=== PATIENT | male | born 1965 | race Caucasian/White ===

== ENCOUNTER → 2017-07-01 | Outpatient (CLI) | payer OTHER ==
[~2017-07-01] MED LIST: ASPI81TA25 PO; ATOR-24 PO; CLOP1TAB5 PO; ISOS30TA3 PO
[2017-07-01 17:46] LABS: ALT/SGPT 31 U/L (12-78); BLOOD UREA NITROGEN 18 mg/dl (7-18); BUN/CREATININE RATIO 17.7 (10-20); CALCIUM 8.9 mg/dl (8.5-10.1); CARBON DIOXIDE 27 mmol/L (21-32); CHLORIDE 105 mmol/L (98-107); CHOLESTEROL 148 mg/dl (0-200); GLUCOSE 96 mg/dl (70-99); POTASSIUM 4.3 mmol/L (3.5-5.1); SODIUM 139 mmol/L (136-145)
[2017-07-01 17:56] LABS: ALB/GLOB RATIO 1.2 (0.9-2); ALKALINE PHOSPHATASE 66 U/L (45-117); AST/SGOT 21 U/L (15-37); CHOLESTEROL/HDL RATIO 2.7; HDL CHOLESTEROL 54 mg/dl; LDL CHOLESTEROL CALCULATED 32 mg/dl; THYROID STIMULATING HORMONE 0.959 uIu/ml (0.300-4.500); TRIGLYCERIDES 309 mg/dl (0-150); VERY LOW DENSITY LIPOPROT CALC 62 mg/dl
== END | disposition home or self-care (01) ==
LOC: C.LABPBG 15:52
PROVIDERS: ATTEND Physician Assistant
DX: R42 Dizziness and giddiness (principal); Z00.00 Encounter for general adult medical examination without abnormal findings

== ENCOUNTER → 2018-01-13 | Outpatient (CLI) | payer OTHER ==
--- NOTE | 2018-01-13 16:06 | DIAGNOSTIC IMAGING REPORT ---
CHEST 2 VIEWS ROUTINE CLINICAL HISTORY: R06.02 Shortness of [id number] dyspnea COMPARISON STUDY: No previous studies for comparison. FINDINGS: The bones soft tissues and hemidiaphragms are normal. The cardiomediastinal silhouette is normal. The lungs are clear. The pulmonary vasculature is normal. IMPRESSION: Negative chest. The above report was generated using voice recognition software. It may contain grammatical, syntax or spelling errors. Electronically signed by: Junior Severino M.D. 01/13/2018 4:05 PM Dictated Date/Time: 01/13/2018 4:04 PM
== END | disposition home or self-care (01) ==
LOC: C.RAD1850 15:43
PROVIDERS: ATTEND Physician Assistant
DX: R06.02 Shortness of breath (principal)

== ENCOUNTER 2024-11-09 05:53 | Observation (INO) ==
--- NOTE | 2024-10-16 11:05 | PAT Medication Instructions ---
Medication Instructions Date of Service October 16, 2024 Home Medications Medication Instructions Recorded hydrocodone 5 mg-acetaminophen 325 1 - 2 tab PO Q6H PRN pain #15 tabs 10/05/ mg tablet Medication List: aspirin 81 mg tablet,delayed release (Aspir-) 81 mg PO QAM hydrocodone 5 mg-acetaminophen 325 mg tablet 1 - 2 tab PO Q6H PRN pain gabapentin 300 mg capsule 300 mg PO BID lisinopril 10 mg tablet 10 mg PO QAM rosuvastatin 40 mg tablet 40 mg PO QAM MEDICATION INSTRUCTIONS: ASK your prescriber and surgeon aspirin 81 mg tablet,delayed release (Aspir-) 81 mg PO QAM DO NOT take the morning of surgery lisinopril 10 mg tablet 10 mg PO QAM Take morning of surgery With a small sip of water, OTHERWISE NOTHING TO EAT OR DRINK AFTER MIDNIGHT: rosuvastatin 40 mg tablet 40 mg PO QAM hydrocodone 5 mg-acetaminophen 325 mg tablet 1 - 2 tab PO Q6H PRN pain gabapentin 300 mg capsule 300 mg PO BID Take evening before surgery hydrocodone 5 mg-acetaminophen 325 mg tablet 1 - 2 tab PO Q6H PRN pain gabapentin 300 mg capsule 300 mg PO BID Other Notes If you have any questions please call us at [phone] or [phone] or [phone] or [phone]
--- NOTE | 2024-10-30 09:23 | Anesthesiology Consultation ---
Date of Service October 30, 2024 Assessment & Plan (1) Encounter for pre-operative examination: - Infectious disease screening: Per assessment on 10/30/24- No known recent infectious disease contacts or current infectious disease symptoms. - Cardiology visit (10/11/24): "EKG Today NSR no acute changes.. In terms of preop risk assessment, per Asim criteria, patient was counseled that hr would be placed at a low risk for any perioperative cardiovascular events associated with laminectomy surgery. Patient is on a good medication regimen and no other cardiac testing or interventions would further lower that risk.." Chart Review Chart Review: Acceptable Risk for Surgery and Patient seen in Pre Admission Testing Teaching & Discussion Pre-Anesthesia Teaching/Discussion Notes: Instructed NPO after midnight before surgery,except medications with 15 cc of water. Medication instructions provided according to the PAT guidelines. History Surgery Operation Date: 11/09/24 08:50 Proposed Procedures p L4 Laminectomy - Stu Zimmer MD Height/Weight Height: 5 ft 7 in Weight: 78.6 kg Allergies Allergy/AdvReac Type Severity Reaction Status Date / Time No Known Allergies Allergy Verified 10/16/24 08:32 Medications Home Medications Medication Instructions Recorded Confirmed Last Taken aspirin 81 mg tablet,delayed 81 mg PO QAM 09/05/18 10/16/24 09/30/19 release (Aspir-) hydrocodone 5 mg-acetaminophen 325 1 - 2 tab PO Q6H PRN pain #15 tabs 10/05/24 10/16/24 Unknown mg tablet lisinopril 10 mg tablet 10 mg PO QAM 10/16/24 10/16/24 Unknown rosuvastatin 40 mg tablet 40 mg PO QAM 10/16/24 10/16/24 Unknown gabapentin 300 mg capsule 300 mg PO TID 10/19/24 Unknown methylprednisolone 4 mg tablet 4 mg PO .COMPLEX 18 days #63 tabs 10/19/24 Unknown (Medrol) Past Medical History Medical History Coronary artery disease GILBERT x2 to LAD 10/2013 Repeat cath 01/2014- patent LAD stents, intermediate lesion in pLAD (not hemodynamically sufficient by FFR, nonobstructive disease elsewhere - medical management Disc degeneration, lumbar Dyslipidemia Hypertension Lumbar disc herniation Lumbar radiculopathy Lumbar spondylosis Myocardial Infarction 2013 Follows with [facility] cardio/Dr. Cade Osteoarthritis Exercise / Class Metabolic Activity II 4-5 Yardwork/Stairs/Walk up hill (one FS: No CP, no SOB) Past Family History Family History Sister Family hx colonic polyps Father Cardiac disorder Gall bladder disease Hypertension Myocardial infarction 39 Brother Cardiac disorder Hypertension Myocardial infarction 45 Mother Coronary heart disease Myocardial infarction Denies family history of Ovarian cancer Prostate cancer Diabetes Breast cancer Lung cancer Past Surgical History Surgical History H/O arthroscopy of shoulder (2018) Left shoulder History of cardiac cath stents History of colonoscopy History of heart artery stent stents History of herniorrhaphy History of tooth extraction Hx of vasectomy Past Anesthesia History No Hx of Anesthesia Complications and No Family Hx of Anesthesia Complications History of PONV No Hx of PONV and No Hx of Motion Sickness Social History Smoking Status: Never smoker tobacco type: smokeless tobacco Do You Dip or Chew Tobacco: Yes (Daily- Advised none DOS) Hx Alcohol Use: Yes Alcohol type: beer alcohol intake frequency: holidays/special occasions only Hx Substance Use: No substance use type: does not use Review of Systems Patient denies chest pain, shortness of breath, dyspnea on exertion, fever, chills, cough, wheezing, palpitations. Physical Exam Vital Signs BP 122/84 P 61 TEMP 98.2 SP02 96%RA RESP 16 Physical Full cervical extension range of motion. Full TMJ range of motion. TMD 3 finger breaths Mallampati Score I Dentition: upper partial Lungs: clear throughout to auscultation Cardiac: regular rate and rhythm, no murmurs noted Spine: normal Carotid arteries: negative bruit Extremities: no LE edema Lab Results Anesthesia Preop Results Results Anesthesia Widget: WBC 12.93 K/ul (4.8-10.8) H 10/30/24 Hgb 14.9 g/dl (14.0-18.0) 10/30/24 Hct 45.5 % (42.0-52.0) 10/30/24 Plt 317 K/uL (130-400) 10/30/24 PT 10.3 Seconds (9.0-12.0) 10/30/24 PTT 26 Seconds (21-31) 10/30/24 INR 0.9 (0.9-1.1) 10/30/24 HA1c 5.6 % (4.5-5.6) 10/30/24 Testing Laboratory Results 10/09/24 SODIUM 136 POTASSIUM 5.1 CHLORIDE 101 CO2 22 BUN 14 CREATININE 1.2 GLUCOSE 105 Elevated WBC- Surgeon's office made aware. Electrocardiogram Date: 10/11/24 Findings: + NSR @ (73) Stress Test Date: 10/20/21 Negative stress echo/ECG for ischemia at 89% MPHR. Excellent exercise tolerance. 14.2 METS. Rest echo: EF 60-65%. No regional wall motion abnormalities. No LVH. No significant diastolic dysfunction. No significant valvular abnormalities.
[2024-11-09] MEDS ORDERED: ONDANSETRON INJ 2 MG/ML 2 ML VIAL ONE (06:41)
[2024-11-09] MEDS ORDERED: MIDAZOLAM HCL 1 MG/ML 2ML VIAL ONE (06:41)
[2024-11-09] MEDS ORDERED: LIDOCAINE 2% 2 ML VIAL/AMP(20MG/ML) INFIL ONE (06:41)
[2024-11-09] MEDS ORDERED: fentaNYL citrate PF 100 MCG/2 ML VIAL ONE (06:41)
[2024-11-09] MEDS ORDERED: DEXAMETHASONE SOD INJ 4 MG/ML VIAL ONE (06:41)
[2024-11-09] MEDS ORDERED: PROPOFOL IV EMULSION 10 MG/ML 20 ML VIAL IV ONE (06:41)
[2024-11-09] MEDS ORDERED: ROCURONIUM BROMIDE 10 MG/ML 5 ML VIAL IV ONE (06:42)
[2024-11-09] MEDS: LR 60ML/HR IV SCH (06:44)
[2024-11-09] MEDS: LR 15ML/HR IV SCH (06:44)
--- NOTE | 2024-11-09 07:12 | History & Physical Report ---
Date of Service November 09, 2024 Assessment & Plan (1) Lumbar spondylosis: (2) Lumbar radiculopathy: (3) Cyst of lumbar facet joint: (4) Disc degeneration, lumbar: Plan I discussed treatment options with the patient today. At this time he has had almost 3 months of symptoms without significant improvement despite trialing corticosteroids, gabapentin and narcotic pain medication. He has been doing home exercises, he has had multiple trips to the emergency department due to the severity of his pain. He does have documented weakness of ankle dorsiflexion on the right. I discussed the possibility of observation, epidural injection or surgery in the form of an L4-5 decompression via L4 laminectomy. Given the severity of pain and duration of symptoms patient would like to proceed with surgical intervention. He reports he has a cardiology appointment next week for preoperative evaluation. We discussed surgical intervention at length, and the patient was informed that risks include but are not limited to: bleeding, infection, blood clots to extremities or lungs, no relief or incomplete relief of symptoms, dural tear, nerve injury, paralysis, weakness, pain, prolonged recovery, need for physical therapy or rehabilitation services, loss of bowel/bladder control, recurrent stenosis or disc herniation, need for more surgery, and in very rare instances even . We also discussed the fact that this surgery is better for relief of the nerve pain in the lower extremities than back pain. The patient voiced understanding of the risks and benefits of surgery and elected to proceed. History of Present Illness Chief Complaint: Right Leg Pain Primary Care Provider: Judit Upton MD Patient is a pleasant 59-year-old gentleman who comes in today with several months of right lower extremity radicular pain. Reports last year he had severe episode of pain radiating into the right gluteal and lateral thigh region. This resolved however came back in July of this year worsening and now radiating down the posterior lateral aspect of his leg following an L5 dermatomal pattern. He was started on an oral steroid pack which did provide temporary relief. Shortly after stopping the oral steroid pack he reported return of pain down his right lower extremity. He was evaluated by his primary care physician. He reports doing greater than 6 weeks of home exercise program which includes lumbar stretches without significant improvement. Pain has worsened and recently he presented to the [facility] emergency department for evaluation. He subsequently had an MRI which demonstrated moderate to severe central canal stenosis and severe bilateral L4-5 lateral recess stenosis. He has been taking gabapentin hydrocodone with minimal relief. He does have some weakness in his right foot with ankle dorsiflexion which she did not notice until he was evaluated in the emergency department. Allergies Allergy/AdvReac Type Severity Reaction Status Date / Time No Known Allergies Allergy Verified 11/09/24 06:21 Home Medications Medication Instructions Recorded Confirmed Type aspirin 81 mg tablet,delayed 81 mg PO QAM 09/05/18 11/09/24 History release (Aspir-) hydrocodone 5 mg-acetaminophen 325 1 - 2 tab PO Q6H PRN pain #15 tabs 10/05/24 11/09/24 Rx mg tablet lisinopril 10 mg tablet 10 mg PO QAM 10/16/24 11/09/24 History rosuvastatin 40 mg tablet 40 mg PO QAM 10/16/24 11/09/24 History gabapentin 300 mg capsule 300 mg PO TID 10/19/24 11/09/24 History methylprednisolone 4 mg tablet 4 mg PO .COMPLEX 18 days #63 tabs 10/19/24 11/09/24 Rx (Medrol) Past Med/Surg History Problem List Cyst of lumbar facet joint Disc degeneration, lumbar Lumbar radiculopathy Lumbar spondylosis Encounter for pre-operative examination Medical History Coronary artery disease GILBERT x2 to LAD 10/2013 Repeat cath 01/2014- patent LAD stents, intermediate lesion in pLAD (not hemodynamically sufficient by FFR, nonobstructive disease elsewhere - medical management Disc degeneration, lumbar Dyslipidemia Hypertension Lumbar disc herniation Lumbar radiculopathy Lumbar spondylosis Myocardial Infarction 2013 Follows with [facility] cardio/Dr. Cade Osteoarthritis Surgical History H/O arthroscopy of shoulder (2018) Left shoulder History of cardiac cath 2013- 2 stents History of colonoscopy History of heart artery stent 2013- 2 stents History of herniorrhaphy History of tooth extraction Hx of vasectomy Family History Sister Family hx colonic polyps Father Cardiac disorder Gall bladder disease Hypertension Myocardial infarction 39 Brother Cardiac disorder Hypertension Myocardial infarction 45 Mother Coronary heart disease Myocardial infarction Denies family history of Ovarian cancer Prostate cancer Diabetes Breast cancer Lung cancer Social History Smoking Status: Never smoker Tobacco Type: Smokeless Tobacco (Dip or Chew) Second Hand Exposure: Yes (hx); Do You Dip or Chew Tobacco: Yes (Daily- Advised none DOS); Tobacco Cessation Education Requested by Patient: No Hx Alcohol Use: Yes Alcohol type: beer Hx Substance Use: No Preferred Language: Hungarian Communication Ability: Effective Visual Impairment: No Limitations Hearing Ability: Normal Dye Tub Tender Required: No Beliefs That Will Affect Care: None Current Living Situation: Spouse current occupational status: employed current occupation: construction Other Information That Helps Us Care for You: No Feels Safe at Home: Yes Safety Concerns: Feels Safe At This Time Childhood Exposure to Second-Hand Smoke: Yes Diet Comment: regular caffeine: No Dental Care, Regularly: No Physical Activity Frequency: Daily Physical Activity Frequency Comment: walking Seatbelt Use: sometimes Sunscreen Use: No Assistive Devices: Denture - Upper Assistive Devices Comment: upper partial denture Review of Systems All systems reviewed & are unremarkable except as noted in HPI & below. Physical Exam Constitutional: Well developed, appears stated age Psych: patient is coherent and answers questions appropriately, normal affect Eye: Normal gaze, no redness to sclera, pupils round and equal Pulm: Normal respiratory effort, no wheezing Cardiovascular: no significant peripheral edema, palpable DP/PT pulses Skin shows no rashes, lesions No midline or paraspinal tenderness with palpation over the lumbar spine, no stepoffs Motor strength is 5/5 in bilateral hip flexors, quadriceps, tibialis anterior, extensor hallucis longus, and gastroc/soleus complex with the exception of 4 out of 5 strength in right tibialis anterior and EHL Sensation intact to light touch in the L2-S1 dermatomes bilaterally with the exception of paresthesias right L5 dermatome Results & Data Results & Data Laboratory Results . Diagnostic Findings Weightbearing AP lateral and oblique views of the lumbar spine were available for review today and interpreted personally. There is significant posterior facet arthropathy at L4-5 and L5-S1. Maintained disc space height throughout the lumbar spine. There is no evidence of spondylolisthesis. MRI of the lumbar spine was available for review today and interpreted personally. Moderate disc degeneration at the L3-4 and L4-5 levels. L4-5 demonstrates a significant disc bulge, there is also posterior facet arthropathy with osteophyte formation. The anterior disc bulging as well as posterior facet arthropathy lead to circumferential stenosis and severe lateral recess stenosis with compression of bilateral traversing nerve roots PG Care Time/CCT Total # of Minutes Spent Total Time Spent with Patient: Total time spent is greater than 50% in coordination of care (as documented) at patient's floor/unit and/or counseling patient: Coding Level of Care Code Established Pt None Patient Type Established History Problem Focused Exam Problem Focused Diagnoses Lumbar spondylosis M47.816 Lumbar radiculopathy M54.16 Cyst of lumbar facet joint M71.38 Degeneration of intervertebral disc of lumbar region with discogenic back pain and lower extremity pain M51.362 Disc-related pain type: discogenic back pain and lower extremity pain (4) Disc degeneration, lumbar Disc-related pain type: discogenic back pain and lower extremity pain Qualified Code(s): M51.362 - Other intervertebral disc degeneration, lumbar region with discogenic back pain and lower extremity pain
[2024-11-09] MEDS: ceFAZolin 2000MG 2,000 MG/15 ML SYR IV SCH ×2 (07:45→15:57)
[2024-11-09] MEDS ORDERED: PHENYLEPHRINE HCL 10 MG/ML VIAL ONE (07:52)
[2024-11-09] MEDS ORDERED: SUGAMMADEX SODIUM 200 MG/2 ML VIAL IV ONE (07:55)
[2024-11-09] MEDS ORDERED: PHENYLEPHRINE 100MCG/ML 5ML SYR ONE (07:55)
[2024-11-09] MEDS: FLOSEAL HEMOSTATIC MATRIX 10ML TOP ONE (08:46)
[2024-11-09] MEDS: BUPIVACAINE 0.5 % 5 MG/1 ML MPF 30ML VIAL ONE (08:46)
[2024-11-09] MEDS: GELATIN SPONGE SZ 100 ONE (08:46)
[2024-11-09] MEDS: VANCOMYCIN HCL 1000MG/20ML VIAL ONE (08:52)
--- NOTE | 2024-11-09 09:22 | Operative Report ---
PG Post Operative Report Pre & Post Diagnosis Operation Date: 11/09/24 07:30 Pre-Op Diagnosis: (1) Lumbar spondylosis (2) Lumbar radiculopathy (3) Cyst of lumbar facet joint (4) Lumbar Stenosis without claudication Post-Op Diagnosis: (1) Lumbar spondylosis (2) Lumbar radiculopathy (3) Cyst of lumbar facet joint (4) Lumbar Stenosis without claudication I identified the patient and participated in the time-out.: Yes Procedure L4 Laminectomy for excision of extradural lesion, facet cyst ([id number]) Surgeon Stu Zimmer MD Acetylene Operator Spenser ARREDONDO Estimated Blood Loss 20 Findings Consistent with Post-Op Diagnosis Facet cyst originating from right L4-5 facet joint adherent to dura Specimens None Drains MALCOM Drain Anesthesia Type General Complications none Disposition Disposition: Recovery Room Indications Clinic setting reviewed. Failed considerable conservative management and had symptoms for greater than 1 year. Further treatment options to continue observation, epidural injection or surgical intervention. We discussed risks and benefit of L4 laminectomy with excision of facet cyst. Patient elected to proceed with surgery. Description of Procedure Patient was brought to the operating room and general views. Placed in the prone position on table with Neal frame. Preoperative fluoroscopy was used to josselyn incision, he was prepped and draped in usual sterile fashion. Verbal timeout formed identifying the patient by name, date of and verifying the correct procedure. All were in agreement and elected surgery. Skin was incised with 10 blade scalpel, Bovie electrocautery was used to dissect down to the lumbodorsal lumbodorsal fascia was split midline over the L4 spinous recess. I carried out subperiosteal dissection of the left to expose the L4 lamina and superior L5 lamina. Micro nerve hook was placed in the interlaminar space at L4-5, fluoroscopy used to verify the correct. I then used a high-speed bur to decorticate the L4 lamina, spinous process was removed with a Leksell rongeur. Ligamentum flavum was exposed at L4-5. I then used a 4 Kerrison to remove the remaining lamina bone. Ligamentum flavum was split midline with a nerve hook and removed completely between L4 and L5 with 4 Kerrison. There was a large facet cyst arising from the right L4-5 joint tightly adherent to the dura. This was dissected off of the dura with the use of nerve hook and Mason elevator and removed with 4 Kerrison. I found there was facet hypertrophy at L4-5 bilaterally contributing to lateral recess stenosis. Facet joints were undercut bilaterally with 4 Kerrison ensuring to leave greater than 50% bilaterally to avoid instability. Castrejon ball probe was then passed through the L4-5 lateral recess bilaterally, easily able to pass the probe out into the L4-5 foramen by the. This completed decompression and excision of facet cyst. The wound was thoroughly irrigated. Drain was placed subfascially exiting through the skin. The wound was then closed in layers with Vicryl fascia, skin closed Vicryl and mario alberto. Sterile dressing was applied, drain attached to accordion suction. Patient was awakened from anesthesia and taken to PACU in stable condition. I attest to the content of the Intraoperative Record and any orders documented therein. Any exceptions are noted below.
--- NOTE | 2024-11-09 09:37 | Anesthesiology Progress Note ---
Date of Service November 09, 2024 Anesthesia Post Procedure Vital Signs Vital Signs: Temp Pulse Pulse Resp BP Pulse Ox O2 Del Method 11/09/24 09:30 47 L 10 L 138/90 99 Room Air 11/09/24 09:20 44 L 9 L 122/87 100 Room Air 11/09/24 09:14 43 L 8 L 139/93 100 Room Air 11/09/24 06:25 37 C 50 L 20 133/85 97 Room Air Transfer of Care Handoff Completed per policy Notes Mental Status: alert / awake / arousable Patient Amnestic to Procedure: Yes Nausea / Vomiting: adequately controlled Pain: adequately controlled Airway Patency, RR, SpO2: stable & adequate BP & HR: stable & adequate Hydration State: stable & adequate Anesthetic Complications: no major complications apparent and Pt Satisfied with anesthetic care
[2024-11-09] MEDS ORDERED: ONDANSETRON INJ 2 MG/ML 2 ML VIAL IV PRN ×2 (09:41→10:51)
[2024-11-09] MEDS ORDERED: ePHEDrine sulfate 50 MG/ML AMP IV PRN (09:41)
[2024-11-09] MEDS ORDERED: ATROPINE SULFATE 0.1 MG/ML 10ML SYR IV PRN (09:41)
[2024-11-09] MEDS: fentaNYL citrate PF 100 MCG/2 ML VIAL IV PRN (09:45)
[2024-11-09] MEDS: fentaNYL citrate PF 100 MCG/2 ML VIAL ONE (09:46)
--- NOTE | 2024-11-09 10:26 | Fluoroscopy Report ---
FL spine 1V any level CLINICAL HISTORY: L4 LAMINECTOMY TECHNIQUE: 2 views were obtained with the C-arm in the OR with the above procedure. Total fluoroscopy time was 11.4 seconds. Radiation dose was 2.5 mGy. Comparison: Comparison is made to CT lumbar spine 06/07/2020 FINDINGS/IMPRESSION: Intraoperative images were obtained of L4 laminectomy. Please correlate with intraoperative fluoroscopy and operative report. ACT 112: Negative or not required by law. Electronically signed by: Darryl Jean Baptiste M.D. 11/09/2024 10:25 AM
[2024-11-09] MEDS ORDERED: ONDANSETRON 4 MG OD TAB PO PRN (10:51)
[2024-11-09] MEDS ORDERED: MAGNESIUM HYDROXIDE SUSP 30 ML UDC PO PRN (10:51)
[2024-11-09] MEDS ORDERED: diphenhydrAMINE Capsule 25 MG CAP PO PRN (10:51)
[2024-11-09] MEDS ORDERED: bisacodyL 10 MG SUPP PR PRN (10:51)
[2024-11-09] MEDS ORDERED: hydrOXYzine HCl 25 MG TAB PO PRN (10:51)
[2024-11-09] MEDS ORDERED: LORazepam 0.5 MG TAB PO PRN (10:51)
[2024-11-09] MEDS ORDERED: LORazepam 2 MG/1 ML VIAL IV PRN (10:51)
[2024-11-09] MEDS ORDERED: ALUMINUM/MAGNESIUM SUSP 30 ML UDC PO PRN (10:51)
[2024-11-09] MEDS ORDERED: NALOXONE HCL 0.4 MG/1 ML VIAL/CARP IV PRN (10:51)
[2024-11-09] MEDS ORDERED: ACETAMINOPHEN 500 MG TAB PO PRN (10:51)
[2024-11-09] MEDS ORDERED: SOD PHOSPHATE/SOD BIPHOSPHATE ENEMA 132 ML BTL PR PRN (10:51)
[2024-11-09] MEDS ORDERED: METOCLOPRAMIDE HCL INJ 5 MG/ML 2 ML VIAL IV PRN (10:51)
[2024-11-09] MEDS ORDERED: DO NOT ADMINISTER PNEUMOCOCCAL VACCINE PRN (10:51)
[2024-11-09] MEDS ORDERED: PROMETHAZINE 12.5 MG/50.5 ML BAG IV PRN (10:51)
[2024-11-09] MEDS ORDERED: FAMOTIDINE 20 MG TAB PO PRN (10:51)
[2024-11-09] MEDS ORDERED: DO NOT ADMINISTER FLU VACCINE PRN (10:51)
[2024-11-09] MEDS: HYDROmorphone INJ 1 MG/ML SYRINGE IV PRN (11:18)
[2024-11-09] MEDS: ASPIRIN 81 MG ECTAB PO SCH (11:25)
[2024-11-09] MEDS: ROSUVASTATIN CALCIUM 20 MG TAB PO SCH (11:25)
[2024-11-09] MEDS: GABAPENTIN 300 MG CAP PO SCH (11:25)
--- NOTE | 2024-11-09 11:27 | Hospitalist Consultation ---
Date of Consultation November 09, 2024 Assessment & Plan (1) S/P laminectomy: (2) Cyst of lumbar facet joint: (3) Disc degeneration, lumbar: (4) Lumbar radiculopathy: (5) Lumbar spondylosis: (6) Hypertension: (7) Dyslipidemia: (8) Coronary artery disease: Plan S/p L4 laminectomy Lumbar Radiculopathy - POD 0 - Pain management, bowel regimen and DVT ppx per the primary team - PT/OT consults, pt awaiting restrictions/rec from surgeon - Follow am CBC to monitor for acute blood loss, Hgb of 14.9 on 10/30 on chart review CAD s/p 2 GILBERT in 2013 HTN HLD - Continue home meds, did not take lisinopril as directed this morning Tobacco Dependence - Chews 1 can snuff daily, had a chew in mouth during time of eval and pt was receptive to education and removed it. We discussed wound healing s/p laminectomy and to avoid nicotine at least for 48 hrs. Also discussed reduction over the next few weeks. Educated on amount of nicotine he gets with the snuff ( 1 can equivalent to 3 packs cigarrettes). present at bedside and is also supportive. Lines: PIV x 1, MALCOM drain FEN/GI: Advance as tolerated Code: Full Thank you for involving us in the care of Mr. Molina. Please do not hesitate to call with questions or concerns. At this time medicine service will follow along. A total of 35 minutes were spent with greater than 50% of that time face to face with the patient, personally reviewing all current laboratories, imaging studies, past medication reconciliation, outpatient chart review, and discussion with specialists to collaborate care for the patient with attending. Please see attending documentation for corrections and/or additions. Supervising Physician Co-Signing Physician Notes Attending Addendum: Case reviewed with the advanced practitioner. I have personally performed a history and physical examination on the patient. I have reviewed the advanced practitioner's documentation on the date of service referenced in note, and I agree with, and take responsibility for the plan of care. please refer to her notes for full details patient seen and examined, records reviewed by myself as well Davion Wilson MD History of Present Illness Reason for Consultation: Medical management, hx CAD, SC, HTN Attending Physician: Stu Zimmer MD History of Present Illness This is a 59 yo F with PMHx of CAD with GILBERT x 2 to LAD in 2013, HTN, HLD, lumbar disc herniation, radiculopathy and spondylosis and osteoarthritis who underwent elective L4 laminectomy by Dr. Zimmer today 11/09/2024. Medicine has been consulted for history of heart disease and medical management. Patient is doing very well status post surgery, has no acute complaints, no numbness, tingling. His is present with him at bedside. Upon evaluation there is noted that patient has a large chew in his lower lip. Discussion was had regarding nicotine status post laminectomy and he was receptive to spitting out his chew. We discussed not giving nicotine patch post 24 hours after spinal surgery for improved healing. Also discussed further reduction over the next 4 weeks. Pt tolerated oral intake with drinks, he is asking for a diet and is hungry. Last BM was recent. No other acute complaints. Allergies Allergy/AdvReac Type Severity Reaction Status Date / Time No Known Allergies Allergy Verified 11/09/24 06:21 Home Medications Medication Instructions Recorded Confirmed Type aspirin 81 mg tablet,delayed 81 mg PO QAM 09/05/18 11/09/24 History release (Aspir-) hydrocodone 5 mg-acetaminophen 325 1 - 2 tab PO Q6H PRN pain #15 tabs 10/05/24 11/09/24 Rx mg tablet lisinopril 10 mg tablet 10 mg PO QAM 10/16/24 11/09/24 History rosuvastatin 40 mg tablet 40 mg PO QAM 10/16/24 11/09/24 History gabapentin 300 mg capsule 300 mg PO TID 10/19/24 11/09/24 History methylprednisolone 4 mg tablet 4 mg PO .COMPLEX 18 days #63 tabs 10/19/24 11/09/24 Rx (Medrol) Patient History Medical History Coronary artery disease GILBERT x2 to LAD 10/2013 Repeat cath 01/2014- patent LAD stents, intermediate lesion in pLAD (not hemodynamically sufficient by FFR, nonobstructive disease elsewhere - medical management Disc degeneration, lumbar Dyslipidemia Hypertension Lumbar disc herniation Lumbar radiculopathy Lumbar spondylosis Myocardial Infarction 2013 Follows with [facility] cardio/Dr. Cade Osteoarthritis Surgical History H/O arthroscopy of shoulder (2018) Left shoulder History of cardiac cath 2013- stents History of colonoscopy History of heart artery stent 2013- stents History of herniorrhaphy History of tooth extraction Hx of vasectomy Family History Sister Family hx colonic polyps Father Cardiac disorder Gall bladder disease Hypertension Myocardial infarction 39 Brother Cardiac disorder Hypertension Myocardial infarction 45 Mother Coronary heart disease Myocardial infarction Denies family history of Ovarian cancer Prostate cancer Diabetes Breast cancer Lung cancer Social History Smoking Status: Never smoker Tobacco Type: Smokeless Tobacco (Dip or Chew) Second Hand Exposure: No; Do You Dip or Chew Tobacco: No; Tobacco Cessation Education Requested by Patient: No Hx Alcohol Use: Yes Alcohol type: beer Hx Substance Use: No Preferred Language: Dutch Communication Ability: Effective Visual Impairment: No Limitations Hearing Ability: Normal Facilities Custodian Required: No Beliefs That Will Affect Care: None Current Living Situation: Spouse current occupational status: employed current occupation: construction Other Information That Helps Us Care for You: No Feels Safe at Home: No Is there a partner from a previous relationship who is making you feel unsafe now?: No Any Concerns about Your Family Situation: No Would You Like to Speak to Someone About Your Situation: No Safety Concerns: Feels Safe At This Time Childhood Exposure to Second-Hand Smoke: Yes Diet Comment: regular caffeine: No Dental Care, Regularly: No Physical Activity Frequency: Daily Physical Activity Frequency Comment: walking Seatbelt Use: sometimes Sunscreen Use: No Assistive Devices: None Assistive Devices Comment: upper partial denture Review of Systems Review of Systems: Constitutional: No fever, sweats or chills Eyes: No diplopia, no worsening or blurred vision ENT: normal hearing, no trouble swallowing Respiratory: No cough, sputum, dyspnea at rest or on exertion Cardiovascular: No chest pain, tightness or palpitations Abdomen: No pain, nausea, vomiting, diarrhea or constipation Musculoskeletal: No joint pain, calf pain, swelling Neurologic: No weakness, numbness/tingling, or balance problems Psychiatric: No anxiety or depression Skin: No rash or itch Physical Exam Physical Exam: General: awake, alert, no apparent distress, white male, BMI 26 Head: Normocephalic, atraumatic ENT: PERRL, EOMI, no pharyngeal exudate, + poor dentition, + nicotine chewing tobacco (see HPI), mucous membranes moist Chest: Clear to auscultation, on room air, no adventitious breath sounds Cardiac: Regular rate and rhythm, no murmur, no JVD, normal peripheral pulses, good capillary refill Abdominal: NABS x 4 quadrants, soft, nondistended, nontender to palpation, no rebound or guarding Back: MALCOM drain with serosanguineous fluid, dressing C/D/I, patient is able to sit up in bed. Extremities: Normal inspection, no peripheral edema or erythema, calfs nontender to palpation Psych: Normal mood and affect Neuro: AAO x 3, strength intact bilaterally and rated 5/5, no motor deficits, speech is clear, no peripheral sensory deficits Results & Data Results & Data Vital Signs (Past 12 Hours) Vital Signs Temp Pulse Pulse Resp BP Pulse Ox O2 Del Method 11/09/24 11:00 36.6 C 60 20 126/76 96 Room Air 11/09/24 10:30 36.8 C 59 L 20 125/80 98 Room Air 11/09/24 10:30 36.5 C 53 L 20 125/80 96 Room Air 11/09/24 10:10 45 L 10 L 118/75 96 Room Air 11/09/24 10:00 36.4 C L 52 L 12 119/83 96 Room Air 11/09/24 09:50 48 L 12 120/89 96 Room Air 11/09/24 09:40 51 L 12 121/88 99 Room Air 11/09/24 09:30 47 L 10 L 138/90 99 Room Air 11/09/24 09:20 44 L 9 L 122/87 100 Room Air 11/09/24 09:14 43 L 8 L 139/93 100 Room Air 11/09/24 06:25 37 C 50 L 20 133/85 97 Room Air (3) Disc degeneration, lumbar Disc-related pain type: discogenic back pain and lower extremity pain Qualified Code(s): M51.362 - Other intervertebral disc degeneration, lumbar region with discogenic back pain and lower extremity pain
[2024-11-09] MEDS: oxyCODONE/ACETAMINOPHEN 5mg/325mg TAB PO PRN (16:01)
[2024-11-09] MEDS: HYDROmorphone INJ 0.5 MG/0.5 ML SYR IV PRN (19:48)
[2024-11-09] MEDS: DOCUSATE SODIUM/SENNA 50/8.6MG TAB PO SCH (20:31)
[2024-11-10] MEDS: POLYETHYLENE (MIRALAX) 17 GM PACK PO SCH (05:47)
[2024-11-10 08:05] VITALS: BP 126/81; PULSE 71; RESP 18; TEMP 97.7; O2SAT 93
--- NOTE | 2024-11-10 08:49 | Orthopedic Progress Note ---
Date of Service November 10, 2024 Assessment & Plan (1) S/P lumbar laminectomy: dc drain pain control scd and ambulate dc home Subjective s/p lumbar decompression, no complaints, pre op pain is gone Review of Systems All systems reviewed & are unremarkable except as noted in HPI & below. Physical Exam 5/5 L2-S1 myotome SILT L2-S1 dermatomes drain 20cc Results & Data Results & Data Laboratory Results . Diagnostic Findings . PG Care Time/CCT Total # of Minutes Spent Total Time Spent with Patient: Total time spent is greater than 50% in coordination of care (as documented) at patient's floor/unit and/or counseling patient: Coding Level of Care Code 15993 Post Operative Follow-Up Diagnoses S/P lumbar laminectomy Z98.890
--- NOTE | 2024-11-10 08:53 | Hospitalist Progress Note ---
<Statement entered by Miguel Pruett DO - 11/10/24 12:36> I have seen and examined the patient and have discussed the case with the provider above. I have reviewed the advanced practitioner's documentation, and I agree with, and take responsibility for that plan of care. Patient up and ambulatory, pain is well-controlled. is at bedside. Very eager to be discharged. Patient states anticipating discharge from his surgeon. Recommend continuing his previous outpatient medications Discharge plan as per attending Date of Service November 10, 2024 Assessment & Plan (1) S/P laminectomy: (2) Cyst of lumbar facet joint: (3) Disc degeneration, lumbar: (4) Lumbar radiculopathy: (5) Lumbar spondylosis: (6) Hypertension: (7) Dyslipidemia: (8) Coronary artery disease: Plan S/p L4 laminectomy Lumbar Radiculopathy - POD 1 - Pain management, bowel regimen and DVT ppx per the primary team - PT/OT consults, pt awaiting restrictions/rec from surgeon Acute blood loss anemia Hgb 13.3 on POD#1, from pre-op hgb of 14.9 As expected post-operatively No indication for transfusion Asymptotic CAD s/p 2 GILBERT in 2013 HTN HLD - Continue home meds Tobacco Dependence - Chews 1 can snuff daily, had a chew in mouth during time of eval and pt was receptive to education and removed it. We discussed wound healing s/p laminectomy and to avoid nicotine at least for 48 hrs. Also discussed reduction over the next few weeks. Educated on amount of nicotine he gets with the snuff (1 can equivalent to 3 packs cigarettes). present at bedside and is also supportive. Lines: PIV x 1, MALCOM drain FEN/GI: Advance as tolerated Code: Full Thank you for involving us in the care of Mr. Molina. Please do not hesitate to call with questions or concerns. At this time medicine service will follow along. A total of 35 minutes were spent with greater than 50% of that time face to face with the patient, personally reviewing all current laboratories, imaging studies, past medication reconciliation, outpatient chart review, and discussion with specialists to collaborate care for the patient with attending. Please see attending documentation for corrections and/or additions. Admission and Anticipated Discharge Date Admission Date: November 09, 2024 Subjective Seen and examined in 387. Patient dressed and ready for discharge. Feeling well on postop day 1, standing in the room. Denies any surgical site pain or pain/paresthesias in bilateral lower extremities. Tolerating diet without issue. No chest pain or shortness of breath. No nausea or vomiting. Passing flatus and had a small bowel movement. Ready to go home. Review of Systems Review of Systems: At least ten systems reviewed and negative except as noted in the HPI. Physical Exam Physical Exam: Gen: WD/WN, NAD, standing near side of bed, A&Ox3 HEENT: Normocephalic, atraumatic Lung: Clear to Auscultation bilaterally, no wheezes/rales/rhonchi Heart: Regular rate, regular rhythm, no murmurs, rubs, or gallops Abdomen: Soft, NT, ND +BS x 4 Extremities: Spinal dressing c/d/i, MALCOM drain visualized, no edema Skin: Warm, no rash Results & Data Results & Data Vital Signs (Past 12 Hours) Vital Signs Temp Pulse Resp BP Pulse Ox O2 Del Method 11/10/24 08:04 36.5 C 71 18 126/81 93 Room Air 11/10/24 02:56 37.2 C 65 16 115/69 97 Room Air 11/09/24 23:00 36.7 C 57 L 15 111/62 97 Room Air Laboratory Results Short CBC 11/10/24 Range/Units 08:28 WBC 10.59 (4.8-10.8) K/ul Hgb 13.3 L (14.0-18.0) g/dl Hct 39.3 L (42.0-52.0) % Plt Count 306 (130-400) K/uL Diagnostic Findings Spine X-Ray 11/09/24 07:00 FL spine 1V any level CLINICAL HISTORY: L4 LAMINECTOMY TECHNIQUE: 2 views were obtained with the C-arm in the OR with the above procedure. Total fluoroscopy time was 11.4 seconds. Radiation dose was 2.5 mGy. Comparison: Comparison is made to CT lumbar spine 06/07/2020 FINDINGS/IMPRESSION: Intraoperative images were obtained of L4 laminectomy. Please correlate with intraoperative fluoroscopy and operative report. ACT 112: Negative or not required by law. Electronically signed by: Darryl Jean Baptiste M.D. 11/09/2024 10:25 AM (3) Disc degeneration, lumbar Disc-related pain type: discogenic back pain and lower extremity pain Qualified Code(s): M51.362 - Other intervertebral disc degeneration, lumbar region with discogenic back pain and lower extremity pain
[2024-11-10 08:55] LABS: Hematocrit (blood only) 39.3 % (42.0-52.0); Hemoglobin 13.3 g/dl (14.0-18.0); Mean Corpuscular Hemoglobin 30.9 pg (25.0-34.0); Mean Corpuscular Hgb Conc 33.8 g/dL (32.0-36.0); Mean Corpuscular Volume 91.2 fL (80.0-100.0); Mean Platelet Volume 8.8 fL (9.4-12.4); Platelet Count 306 K/uL (130-400); RDW Coefficient of Variation 12.2 % (11.5-14.5); RDW Standard Deviation 40.7 fL (36.4-46.3); Red Blood Count 4.31 M/uL (4.70-6.10); White Blood Count 10.59 K/ul (4.8-10.8)
--- NOTE | 2024-11-10 09:02 | Discharge Summary ---
Date of Service November 10, 2024 Admission HPI (Per Admitting) Patient is a pleasant 59-year-old gentleman who comes in today with several months of right lower extremity radicular pain. Reports last year he had severe episode of pain radiating into the right gluteal and lateral thigh region. This resolved however came back in July of this year worsening and now radiating down the posterior lateral aspect of his leg following an L5 dermatomal pattern. He was started on an oral steroid pack which did provide temporary relief. Shortly after stopping the oral steroid pack he reported return of pain down his right lower extremity. He was evaluated by his primary care physician. He reports doing greater than 6 weeks of home exercise program which includes lumbar stretches without significant improvement. Pain has worsened and recently he presented to the [facility] emergency department for evaluation. He subsequently had an MRI which demonstrated moderate to severe central canal stenosis and severe bilateral L4-5 lateral recess stenosis. He has been taking gabapentin hydrocodone with minimal relief. He does have some weakness in his right foot with ankle dorsiflexion which she did not notice until he was evaluated in the emergency department. Admission Exam (Per Admitting) Constitutional: Well developed, appears stated age Psych: patient is coherent and answers questions appropriately, normal affect Eye: Normal gaze, no redness to sclera, pupils round and equal Pulm: Normal respiratory effort, no wheezing Cardiovascular: no significant peripheral edema, palpable DP/PT pulses Skin shows no rashes, lesions No midline or paraspinal tenderness with palpation over the lumbar spine, no stepoffs Motor strength is 5/5 in bilateral hip flexors, quadriceps, tibialis anterior, extensor hallucis longus, and gastroc/soleus complex with the exception of 4 out of 5 strength in right tibialis anterior and EHL Sensation intact to light touch in the L2-S1 dermatomes bilaterally with the exception of paresthesias right L5 dermatome Principal Diagnosis Same as "Discharge Diagnosis" noted below under Discharge Instructions. Discharge Exam 5/5 L2-S1 myotome SILT L2-S1 dermatomes drain 20cc Discharge Data Consultations 11/09/24 10:51 Consult Hospitalist Routine Procedures Performed Operation Date: 11/09/24 07:30 Actual Procedures p L4 Laminectomy(Not Applicable) - Stu Zimmer MD Ordered Studies 11/09/24 07:00 FL spine 1V any level Routine Hospital Course (1) S/P lumbar laminectomy: Admitted for post op pain control and mobilization. Pain well controlled, ambulating, tolerating PO, voiding. Uneventful post op course, drain discontinued. PG Care Time/CCT Total # of Minutes Spent Total Time Spent with Patient: Total time spent is greater than 50% in coordination of care (as documented) at patient's floor/unit and/or counseling patient: Discharge Plan Discharge Items Patient Disposition: Home - Self-Care Reason For Visit: Lumbar Spondylosis, Radiculopathy, Cyst of Lumbar Discharge Diagnosis: S/p Lumbar Laminectomy Activity: As commented below Activity Comment: follow instruction sheet Lifting: No more than 10 pounds Bathing Comment: follow instruction sheet Sexual Activity: When tolerated Exercise/Sports: Wait until after follow-up appointment Weightbearing: Full weightbearing Non-emergency contact: Surgeon Call non-emergency contact if: your pain is worsening, your temperature is above 101 and your wound has increased drainage Follow-up/Referrals: Judit Upton MD [Primary Care Provider] - Diet: Regular Addtl Attending Provider Instructions: follow up in office 2 weeks call Tuesday to arrange outpatient PT Pending Studies at Discharge: No Stand-Alone Forms: My [facility] [employer], Smoking Cessation Medications and DC Order Prescriptions: New tizanidine 4 mg tablet 4 mg PO Q8H PRN (Reason: muscle spasm) 30 Days Qty: 90 1RF oxycodone-acetaminophen [Endocet] 5-325 mg tablet 1 tab PO Q4H PRN (Reason: pain) 10 Days Qty: 40 0RF Continued gabapentin 300 mg capsule 300 mg PO TID aspirin [Aspir-81] 81 mg Tablet,Delayed Release (Dr/Ec) 81 mg PO QAM lisinopril 10 mg Tablet 10 mg PO QAM rosuvastatin 40 mg tablet 40 mg PO QAM Discontinued methylprednisolone [Medrol] 4 mg tablet 4 mg PO .COMPLEX 18 Days Qty: 63 0RF Rx Instructions: 4mg tabs - 24mg x3 days (6 tabs), 20mg x3 days (5 tabs), 16mg x3 days (4 tabs), 12mg x3 days (3 tabs), 8mg x3 days (2 tabs), 4mg x3 days (1 tab) hydrocodone-acetaminophen 5-325 mg tablet 1 - 2 tab PO Q6H PRN (Reason: pain) Qty: 15 0RF Rx Instructions: Initial Treatment Discharge Orders: Discharge Order (Routine); Ordered 11/10/24 Ordered By: Stu Zimmer Admission Data Admit Date/Time: 11/09/24 09:06 Attending Provider: Stu Zimmer Admit Provider: Stu Zimmer Primary Care Provider: Judit Upton Other Providers: Delores Guy; Cee Rowe I.; Laurie Sandoval; Ruth Ochoa; Jessica Avendano; Ann Hall; Belle Peña; Estiven Larkin; Satya Dozier; Ulices Kern; Davion Wilson; Kayla Ramachandran; Stephen Ag; Chavo Mcneill; Mona Alba; Deysi Loya; Liz Ospina; Tata Llamas; Cristian Muñiz; Tatyana Garnica I.; Pavan Lundberg; Judit Upton; Pedro Vasquez; Alejandro Bergman; Asif Ramirez; Dinh Albert; Iman Tena; Vira Flores; Miguel Pruett; Callum Peters; Jacqueline Goyal; Pavan Vasquez; Sukumar Coleman; Jason Gomez; Pardeep Zapata
== END 2024-11-10 10:51 | disposition home or self-care (01) ==
LOC: ASU 05:53 → 3N 05:53
DX: M47.26 Other spondylosis with radiculopathy, lumbar region; I10 Essential (primary) hypertension; Z79.82 Long term (current) use of aspirin; M71.38 Other bursal cyst, other site; E78.5 Hyperlipidemia, unspecified; Z79.899 Other long term (current) drug therapy; M48.061 Spinal stenosis, lumbar region without neurogenic claudication; Z95.5 Presence of coronary angioplasty implant and graft; I25.10 Atherosclerotic heart disease of native coronary artery without angina pectoris; I25.2 Old myocardial infarction; F17.220 Nicotine dependence, chewing tobacco, uncomplicated